=== PATIENT | male | born 1995 | race Two or more races ===

== ENCOUNTER 2020-04-09 09:00 | Emergency (ER) | payer MEDICAID ==
[~2020-04-09] VITALS: Ht 165.1 cm; Wt 86.2 kg
--- NOTE | 2020-04-09 09:29 | Emergency Room Report ---
History of Present Illness General Chief Complaint: To Be Triaged Source: Patient Present Illness HPI The patient has been ill since Friday or . His other family members also have upper respiratory symptoms. He has been having diarrhea which is cleared up. He last vomited this morning. He still feels some nausea. There is no vomiting foodstuff. His cough is nonproductive. He does not have dyspnea on exertion. There is no chest pain. He is felt feverish. His symptoms of been minimally helped with TheraFlu. One of his close family members is testing positive for Covid. No sore throat, chest pain, palpitations, dysuria, abdominal pain, shortness of breath, joint pain, rashes, depression, anxiety, visual changes, dizziness, headache. 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 [employer] Reviewed Nursing Documentation: PMH: Agreed; PSxH: Agreed Review of Systems All Other Systems: negative except mentioned in HPI Physical Exam Vital Signs Date Time Temp Pulse Resp B/P (MAP) Pulse Ox O2 Delivery O2 Flow Rate FiO2 04/09/20 09:03 97.3 74 18 105/60 (75) 98 Room Air Sp02 EP Interpretation: reviewed, normal General Appearance: well appearing, no apparent distress, GCS 15, non-toxic Head: normocephalic Eyes: bilateral eye normal inspection, bilateral eye PERRL, bilateral eye EOMI ENT: normal pharynx, moist mucus membranes Neck: supple, no meningismus Respiratory: lungs clear, normal breath sounds Cardiovascular #1: regular rate, rhythm Cardiovascular #2: 2+ radial (R) Gastrointestinal: normal inspection, normal bowel sounds, non tender, no mass, non-distended Musculoskeletal: back normal, normal range of motion, no calf tenderness, gait/station normal Neurologic: alert, oriented x3, grossly normal Psychiatric: mood/affect normal Skin: no rash, warm/dry Medical Decision Making Diagnostic Impression: Primary Impression: Upper respiratory tract infection due to COVID-19 virus Additional Impression: Nausea vomiting and diarrhea ER Course Patient presents with slight cough, nausea, vomiting and diarrhea and history of being exposed to Covid positive family contacts. Differential includes COVID-19 upper respiratory illness, Covid gastrointestinal illness, other viral etiologies. Based on vital signs x-rays and laboratory testing not indicated. The diagnosis is clinical. The patient is not in any distress and has no dyspnea on exertion. Discussed findings and importance of quarantining. Discussed symptomatic treatment. No medical emergency at this time. Patient stable for outpatient observation and treatment. Patient advised to return if he is worsening. Last Vital Signs Date Time Temp Pulse Resp B/P (MAP) Pulse Ox O2 Delivery O2 Flow Rate FiO2 04/09/20 11:18 97.3 71 16 118/71 97 Room Air Status: improved Disposition: HOME, SELF-CARE Condition: Improved Scripts Promethazine HCl/Codeine (Prometh-Codein 6.25-10 mg/5 ml) 5 Ml Syrup 5 ML PO Q6HR PRN for For Cough, #90 ML Prov: Russel Rivera MD 04/09/20 Ibuprofen* (MOTRIN*) 600 Mg Tablet 600 MG ORAL Q6H PRN for FOR PAIN, #16 TAB 0 Refills Prov: Russel Rivera MD 04/09/20 Ondansetron Odt* (ZOFRAN ODT*) 4 Mg Tab.rapdis 4 MG BC EVERY 8 HOURS PRN for Nausea & Vomiting, #6 TAB 1 Refill Prov: Russel Rivera MD 04/09/20 Russel Rivera MD Apr 09, 2020 09:29
[2020-04-09 09:30] VITALS: BP 105/60
--- NOTE | 2020-04-09 09:30 | NUR ---
ED Nurse Note: Pt walked in to Ed c/o cough and fever x5 days ago. Temp at triage is 97.4F. Denies SOB. AAOx4, verbally responsive. ERMD at bedside.
[2020-04-09] MEDS ORDERED: IBUPROFEN600 M1 ORAL (10:51)
[2020-04-09] MEDS ORDERED: ONDANSETRON ODT4 MG BC (10:51)
[2020-04-09] MEDS ORDERED: PROMETH-CODEIN 65 ML PO (11:05)
--- NOTE | 2020-04-09 11:16 | NUR ---
ED Nurse Note: Pt cleared by ERMD for discharge. DC instructions/prescription was given and explained to pt and verbalized understanding of teachings. All medical deviecs such as ID band removed. Pt is AAO x4, ambulatory and left with all personal belongings.
[2020-04-09 11:18] VITALS: BP 118/71
== END 2020-04-09 11:16 | disposition home or self-care (01) ==
LOC: EMR 09:37
DX: R05 Cough (principal); R11.2 Nausea with vomiting, unspecified; R19.7 Diarrhea, unspecified
CPT/HCPCS: 99282